=== PATIENT | female | born 1930 | race Caucasian/White ===

== ENCOUNTER → 2017-12-18 | Outpatient (CLI) | payer MEDICARE, OTHER | LOC: M.ULTRA 12-09 08:08 | DX: I71.4 Abdominal aortic aneurysm, without rupture (principal); I70.90 Unspecified atherosclerosis; I65.23 Occlusion and stenosis of bilateral carotid arteries ==

== ENCOUNTER → 2019-01-13 | Outpatient (CLI) | payer MEDICARE, OTHER | LOC: M.ULTRA 08:58 | DX: I71.4 Abdominal aortic aneurysm, without rupture (principal); I65.23 Occlusion and stenosis of bilateral carotid arteries ==

== ENCOUNTER → 2021-01-08 | Outpatient (CLI) | payer MEDICARE, OTHER | LOC: M.ULTRA 12-21 15:06 | PROVIDERS: ATTEND Surgery Vascular Surgery | DX: I65.23 Occlusion and stenosis of bilateral carotid arteries (principal); I71.4 Abdominal aortic aneurysm, without rupture ==